=== PATIENT | male | born 1945 | race Caucasian/White ===

== ENCOUNTER 2024-12-30 09:57 | Emergency (ER) | payer OTHER, MEDICARE ==
[~2024-12-30] VITALS: Ht 188 cm; Wt 86.8 kg
[~2024-12-30 09:57] MED LIST: ATOR20TA66 PO; DAPA10TA PO; LISI2.5T14 PO
[2024-12-30 10:00] VITALS: TEMP 98.7
[2024-12-30] MEDS: LidoCAINE 2% Topical Jelly 11mL syringe (UROJET) TOP ONE (10:20)
--- NOTE | 2024-12-30 10:21 | Physician Documentation ---
History of Present Illness ~ Chief Complaint: Urinary Retention Stated Complaint: URINE RETENTION Time Seen by MD: 10:07 HPI 79-year-old male presenting with acute onset urinary retention that started three days ago. He reports that he has been unable to urinate aside from some dribbling and a few drops coming out every time. He has an uncomfortable sensation that has now turned into pain in his suprapubic area. He denies any burning on urination, fever, chills or any other associated symptoms. He does state that it was slightly dizzy today which he describes his lightheadedness as he was unable to urinate. He denies using any opioid pain medications or any other sedatives although he is on medications for depression and mood as well as sleep. Medication Reconciliation Allergies: Coded Allergies: codeine (Verified Allergy, Unknown, 12/30/24) nitroglycerin (Verified Allergy, Unknown, 12/30/24) Scheduled Atorvastatin Calcium (Atorvastatin Calcium), 20 MG PO DAILY Dapagliflozin Propanediol (Farxiga), 1 TAB PO DAILY Lisinopril (Lisinopril), 1 TAB PO DAILY Past Medical History Past Medical History: Vertigo, *CARDIOVASCULAR*, High Cholesterol, Syncope, Diverticulitis, Pancreatitis, *CANCER* Past Surgical History: cancer surgery, cholecystectomy, orthopedic surgeries Alcohol Use: Rarely Drug Use: none Review of Systems All Other Systems at this time: Reviewed and Negative Physical Exam Vital Signs: Temperature: 98.7, Source: Oral, Heart Rate: 84, Respiratory Rate: 18, BP: 144/71, Pulse Oximetry: 99, Weight: 86.800 Oxygen Flow Rate: 0 Physical Exam I have reviewed the triage vitals. CONST: Well developed and well nourished. In no acute distress HENT: Head Atraumatic EYES: Pupils are equal, round and reactive to light. Normal conjunctiva NECK: Normal range of motion. Supple. CARDIO: Normal rate and regular rhythm. No murmurs, rubs, or gallops. S1, S2. PULM/CHEST: No respiratory distress. Lungs clear to auscultation. No wheeze ABD: Soft. Slight tenderness to palpation over the suprapubic area. Nondistended. Bowel sounds normal. No guarding. : Exam deferred MSK: No edema. No deformity. NEURO: Alert and oriented to person, place and time. Moving all extremities SKIN: Warm and dry. PSYCH: Normal mood and affect. Good eye contact. Progress Results/Orders Results/Orders Orders - MEAGAN RAINEY MD Bladder Scan (12/30/24 ) Ct Abdomen Pelvis (12/30/24 10:16) * (A) Mccoy- Protocol * Q12H@07,19 (12/30/24 10:16) Ct Abdomen Pelvis (12/30/24 12:03) Completed Orders - MEAGAN RAINEY MD Cbc/Diff (12/30/24 10:16) Hs Troponin I W Calculations (12/30/24 10:16) BMP (12/30/24 10:16) Electrocardiogram (12/30/24 10:16) Ct Abdomen Pelvis (12/30/24 10:16) Lidocaine 2% Jelly 11ml Syr (Glydo-Lidoc (12/30/24 10:20) Ct Abdomen Pelvis (12/30/24 12:03) Ua With Microscopic (12/30/24 12:38) Vital Signs 12/30/24 12/30/24 12/30/24 12/30/24 10:00 10:40 10:42 12:39 Temp 98.7 Pulse 84 75 61 Resp 18 16 16 16 B/P (MAP) 144/71 122/64 (83) 114/95 (101) Pulse Ox 99 96 95 O2 Flow Rate 0 0 0 Laboratory Tests Test 12/30/24 10:27 12/30/24 12:38 White Blood Count 8.5 Red Blood Count 4.96 Hemoglobin 14.8 Hematocrit 44.3 Mean Corpuscular Volume 89.3 Mean Corpuscular Hemoglobin 29.8 Mean Corpuscular Hemoglobin Concent 33.3 Red Cell Distribution Width 13.0 Platelet Count 270 Mean Platelet Volume 6.7 L Neutrophils (%) (Auto) 79.7 H Lymphocytes (%) (Auto) 12.5 L Monocytes (%) (Auto) 6.5 Eosinophils (%) (Auto) 0.8 Basophils (%) (Auto) 0.5 Neutrophils # (Auto) 6.8 Lymphocytes # (Auto) 1.1 Monocytes # (Auto) 0.6 Eosinophils # (Auto) 0.1 Basophils # (Auto) 0.0 CBC Comment Sodium Level 138 Potassium Level 4.5 Chloride Level 104 Carbon Dioxide Level 31.7 Anion Gap 2 L Blood Urea Nitrogen 22 H Creatinine 1.07 Estimated GFR/1.73 m2 67 BUN/Creatinine Ratio 20.6 H Glucose Level 95 Calcium Level 8.4 L Troponin I High Sensitivity 20 Albumin 3.2 L Chemistry Comments Urine Specimen Description Non-specified Urine Color Yellow Urine Clarity Cloudy Urine pH 6.0 Urine Specific [place] <=1.005 Urine Protein Trace Urine Glucose (UA) Negative Urine Ketones Negative Urine Occult Blood Moderate H Urine Nitrite Negative Urine Bilirubin Negative Urine Urobilinogen 0.2 Urine Leukocyte Esterase Large H Urine RBC 3-10 Urine WBC Tntc H Urine Squamous Epithelial Cells None seen Urine Bacteria 3+ Urine Mucus None seen Volume Urine Centrifuged 10 ml Urine Comment EKG/XRAY/CT/US/VASC/MRI EKG : Additional Comment EKG as interpreted by me showing normal sinus rhythm with a rate of 75 beats per minute, normal axis, no ischemia Medical Decision Making Additional Comment 79-year-old male presenting with acute urinary retention. The patient has urinary retention actually self resolved while in the ED. His urinalysis was positive for moderate blood, leukocyte esterase and WBCs which is suggestive of a urinary tract infection. Given his slight urinary retention and no dysuria I suspect the patient may have prostatitis as well. He declined a rectal exam. I will go ahead and treat him for a UTI with presumed prostatitis given his presenting symptoms, clinical findings and lab findings. He will be prescribed a 14 day course of ciprofloxacin as well as daily Flomax to help with his retention and improve urination. I did advise him however that needs to closely follow up with his PCP as well as with Urology for further evaluation of his potential prostatitis and likely prostatic hyperplasia. He was advised to return immediately to the ED with any acutely worsening symptoms. Departure Disposition: HOME / SELF CARE / HOMELESS Impression: Primary Impression: UTI (urinary tract infection) Additional Impression: Prostatitis Discharge Instructions: Urinary Tract Infection, Adult Additional Instructions: Please take your medications as prescribed. Please ensure drinking plenty of fluids. Follow up closely at the [place] with her primary care physician as well as with Urology. Please return immediately to the emergency department with any acutely worsening symptoms. Referrals: NO PRIMARY CARE PROVIDER (PCP) Prescriptions Tamsulosin Hcl* (Flomax*) 0.4 Mg Cap.sr.24h 1 CAP PO DAILY for 30 Days, #30 CAP Prov: MEAGAN RAINEY MD 12/30/24 Ciprofloxacin Hcl (Ciprofloxacin Hcl) 500 Mg Tablet 500 MG PO BID for 14 Days, #28 TAB Prov: MEAGAN RAINEY MD 12/30/24 MEAGAN RAINEY MD Dec 30, 2024 10:21
--- NOTE | 2024-12-30 10:29 | ELECTROCARDIOGRAPH REPORT ---
[facility] Test Date: 2024-12-30 Test Time: 10:25:48 Pat Name: KORIN BHATT Department: PSYCHIATRIC-ER Room: Gender: M [employer]: : 1945 Requested By: MEAGAN RAINEY Order Number: [id number] Reading MD: Dr. Oskar Deal Measurements Intervals [place] Rate: 75 P: 56 ME: 175 QRS: -8 QRSD: 106 T: 54 QT: 385 QTc: 430 Interpretive Statements Sinus rhythm Probable left atrial enlargement Abnormal R-wave progression, early transition Electronically Signed On 01-02-2025 20:44:[address] Oskar Deal Please click the below link to view image of tracing.
--- NOTE | 2024-12-30 10:46 | RADIOLOGY REPORT ---
Exam: CT CT ABDOMEN PELVIS History: Urinary retension- r/o obstruction. Comparison Study: None Technique: Multidetector spiral CT of the abdomen was performed from lung bases to pubic symphysis. Axial imaging was performed with intravenous contrast following the uneventful administration of 100 ml Omnipaque 300. Coronal and sagittal multiplanar reformats were obtained from the axial data set by the technologist. Radiation Dose : 1. Abdomen/Pelvis: CTDIvol 18.88 mGy, DLP 1140.57 mGy*cm. Findings: Lung Bases: Lung bases are clear. Cardiomegaly. No pericardial effusion. Liver: The liver is normal in size. No focal lesions. Gallbladder and Biliary Tree: The gallbladder is surgically absent. No intrahepatic or extrahepatic biliary ductal dilatation. Spleen: Unremarkable Pancreas: The pancreas enhances normally and there are no focal lesions. The main pancreatic duct is not dilated. Adrenal Glands: Unremarkable Kidneys: There is mild bilateral hydroureteronephrosis. There is no obstructive calculus identified. Left renal atrophy noted. GI tract: The stomach is grossly normal in appearance.. No evidence of small bowel wall thickening or abnormal dilatation to suggest bowel obstruction. There is colonic diverticulosis without acute diverticulitis. No acute appendicitis. Peritoneum/mesentery/retroperitoneum. No evidence of free intraperitoneal air. No ascites. No evidence of suspicious lymphadenopathy. Abdominal Wall: Unremarkable. Vasculature: Abdominal aorta and main branches are unremarkable. Normal vascular enhancement. Urinary Bladder: There is distention of the urinary bladder with fat stranding. Pelvic Organs: The prostate is enlarged measuring 5.3 cm. Musculoskeletal: No aggressive focal bony lesions, acute fractures or dislocation. There is grade 1 anterolisthesis at L4-L5 and L5-S1. Soft tissues: Bilateral fat containing inguinal hernias noted. IMPRESSION: 1. Distended urinary bladder with fat stranding and mild bilateral hydroureteronephrosis. Findings suggestive of urinary tract infection. No obstructive calculus identified. 2. Prostatomegaly. 3. Colonic diverticulosis without acute diverticulitis. 4. Cholecystectomy. 5. Cardiomegaly.
[2024-12-30 10:48] LABS: MEAN PLATELET VOLUME 6.7 FL (7.4-10.4); RED CELL DISTRIBUTION WIDTH 13.0 % (11.5-14.5)
[2024-12-30 10:56] LABS: CREATININE 1.07 MG/DL (0.60-1.10); TOTAL CARBON DIOXIDE 31.7 MMOL/L (24-32); eCRCL 66 ML/MIN; eGFR 67 ML/MIN
--- NOTE | 2024-12-30 12:46 | RADIOLOGY REPORT ---
Exam: CT CT ABDOMEN PELVIS History: urinary retension- r/o obstruction Comparison Study: None TECHNIQUE: Multidetector CT of the abdomen and pelvis was performed from lung bases to ischial tuberosities. Imaging was performed without IV contrast using axial images. Coronal and sagittal reformats were obtained from the axial data set by the technologist. Radiation Dose Information: CT Dose: CTDI volume is 36.9 mGy. Dose-length product is 2036.8 mGy*cm FINDINGS: Evaluation of solid organs is limited due to lack of intravenous contrast use. Findings: Lung Bases: Bilateral lower lobe atelectasis. Cardiomegaly. Pacemaker noted. No pleural or pericardial effusion. Liver: The liver is normal in size. No focal lesions. Diffusely hypoattenuating liver parenchyma consistent with hepatic steatosis. Gallbladder and Biliary Tree: Unremarkable gallbladder. No biliary ductal dilatation. Spleen: Unremarkable Pancreas: The pancreas is grossly normal in appearance. Adrenal Glands: Unremarkable Kidneys: There is mild right hydroureteronephrosis due to 2 mm obstructive distal right ureteral calculus. There is also mild left hydroureteronephrosis due to 4 mm distal left ureteral calculus. Bilateral perinephric fat stranding. GI Tract: The stomach is grossly normal in appearance. Small bowel and colon are normal in caliber and distribution. The appendix is visualized and is normal in caliber. Peritoneal cavity: No pneumoperitoneum. No ascites. Lymphadenopathy: No mesenteric, retroperitoneal or periportal lymphadenopathy. Abdominal Wall and Mesentery: Unremarkable. Vasculature: The visualized abdominal aorta is normal in size and caliber. Evaluation of abdominal and pelvic vessels is limited due to lack of intravenous contrast. Pelvic Organs: Unremarkable Urinary Bladder: There is a Mccoy catheter in the urinary bladder Musculoskeletal: No aggressive focal bony lesions, acute fractures or dislocation. Grade 1 anterolisthesis at L4-L5 facet hypertrophy appears there are Bilateral hip replacements width has streak artifact obscuring a lot of the pelvis. Soft tissues: Unremarkable IMPRESSION: 1. Mild right hydroureteronephrosis due 2 mm distal right ureteral obstructing calculus. 2. Mild left hydroureteronephrosis due to 4 mm distal left ureteral calculus. 3. Hepatic steatosis. Radiation optimization: All CT scans at this facility use at least one of these dose optimization techniques: automated exposure control mA and/or kV adjustment per patient size (includes targeted exams where dose is matched to clinical indication) or iterative reconstruction.
[2024-12-30 12:57] LABS: LEUKOCYTE ESTERASE ,URINE LARGE (Neg); NITRITES, URINE NEGATIVE (Neg); OCCULT BLOOD,URINE MODERATE (Neg)
[2024-12-30 13:01] LABS: UA COLLECTION TYPE NON-SPECIFIED
[2024-12-30 13:11] LABS: MUCUS STRANDS NONE SEEN /LPF (Neg); SQUAMOUS EPITHELIAL CELL,UR NONE SEEN /LPF (FEW)
[2024-12-30] MEDS ORDERED: CIPR-546 PO (14:20)
[2024-12-30] MEDS ORDERED: TAMS-55 PO (14:20)
[2024-12-30 14:30] VITALS: PULSE 66; RESP 16
== END 2024-12-30 14:29 | disposition home or self-care (01) ==
LOC: ER 09:57
DX: N39.0 Urinary tract infection, site not specified (principal); N41.9 Inflammatory disease of prostate, unspecified; F32.A Depression, unspecified; E78.00 Pure hypercholesterolemia, unspecified; Z87.19 Personal history of other diseases of the digestive system; Z88.5 Allergy status to narcotic agent; Z88.8 Allergy status to other drugs, medicaments and biological substances; Z90.49 Acquired absence of other specified parts of digestive tract; Z79.899 Other long term (current) drug therapy
CPT/HCPCS: 36415; 74176; 80048; 81001; 84484; 85025; 93005; 99284; A4314; A4358

== ENCOUNTER 2025-02-24 09:09 | Emergency (ER) | payer OTHER, MEDICARE ==
[~2025-02-24] VITALS: Ht 185.4 cm; Wt 90.8 kg
[2025-02-24] MEDS: proparacaine 0.5% ophthalmic drops 15ml LEFTEYE ONE (09:32)
--- NOTE | 2025-02-24 09:51 | Physician Documentation ---
History of Present Illness ~ Chief Complaint: Blurred Vision Stated Complaint: EYE PAIN Time Seen by MD: 09:39 Source: patient Mode of Arrival: POV Exam Limitations: no limitations HPI 79-year-old male with increased blurred vision to left eye pain and blurry vision after foreign body while working on his car about 10 days ago. Patient has history of glaucoma in the right eye. He has had eye pain discharge and blurry vision. [facility] Medication Reconciliation Allergies: Coded Allergies: codeine (Verified Allergy, Unknown, 02/24/25) nitroglycerin (Verified Allergy, Unknown, 02/24/25) Scheduled Atorvastatin Calcium (Atorvastatin Calcium), 20 MG PO DAILY Dapagliflozin Propanediol (Farxiga), 1 TAB PO DAILY Lisinopril (Lisinopril), 1 TAB PO DAILY Past Medical History Past Medical History: Vertigo, *CARDIOVASCULAR*, High Cholesterol, Syncope, Diverticulitis, Pancreatitis, *CANCER* Past Surgical History: cancer surgery, cholecystectomy, orthopedic surgeries Alcohol Use: Rarely Drug Use: none Review of Systems All Other Systems at this time: Reviewed and Negative Eyes: Reports: see HPI Physical Exam Vital Signs: RN Vital Signs have been reviewed: Yes, Temperature: 97.5, Source: Temporal, Heart Rate: 66, Respiratory Rate: 16, BP: 149/61, Pulse Oximetry: 99, Weight: 90.800 Oxygen Flow Rate: 0 Physical Exam General: Alert, no apparent distress. HEENT: moist mucous membranes. Injected conjunctiva no Tamiko sign smooth EOM and PERRLA fluorescein stain Wood's lamp small corneal abrasion noted intra- ocular pressure 10 Neck: Full range of motion. Respiratory: No respiratory distress speaking in full sentences Chest: No accessory muscle use. Cardiovascular: Appears well perfused Neurologic: Oriented x4. Psychiatric: Normal mood and affect. Skin: Normal color, warm and dry. No edema, no ecchymosis. Visual Acuity : Eye Location: Bilateral Vision Acuity Degree: 20/200 Correction: Corrected Procedures Eye Procedure Alcaine Drops Administered: Yes Reexamination after removal: abrasion Antibiotic Ointment/Drps Admin: left eye Tolerated Procedure Well?: yes, no complications Progress Results/Orders Results/Orders Completed Orders - KAMILA CHILDRESS NP Proparacaine Ophth Solution (Alcaine Oph (02/24/25 09:30) Vital Signs 02/24/25 09:12 Temp 97.5 Pulse 66 Resp 16 B/P (MAP) 149/61 Pulse Ox 99 O2 Flow Rate 0 Medical Decision Making Additional information obtaine: N/A Findings Nursing and Wood's lamp used to evaluate for corneal abrasion due to foreign body working on car Piero-Pen to left eye with right eye glaucoma measurement of 10 Ear Diff. Dx: Considerations: Unlikely: Abrasion, Cerumen impaction, Foreign body, Otitis externa, Barotrauma, Otitis media, Perforation, Referred pain- dental, Referred pain-pharyngitis, Referred pain-sinusitis, Referred pain-TMJ syn., Tympanic Membrane Injury, Other Eye Diff. Dx: Considerations: Include: Conjuctivits-allergic, Conjuctivitis- bacterial, Conjuctivitis-viral, Corneal abrasion, Corneal laceration, Corneal ulceration Nose Diff. Dx: Considerations: Unlikely: Abrasion, Anterior nasal bleed, Avulsion, Contusion, Coagulopathy, Fracture-nasal bone, Fracture-septum, Hypertension, Laceration, Other, Posterior nasal bleed, Retained foreign body, Septal hematoma Tooth Diff. Dx: Considerations: Unlikely: Alveolar fracture, Aveolar osteitis, ANUG, Facial cellulitis, Periapical abscess, Periodontal abscess, Post- extraction bleeding, Pulpitis, Trigeminal neuralgia, Tooth-avulsion, Tooth- eruption, Tooth-fracture, Tooth-subluxation, Other Throat Diff Dx: Considerations: Unlikely: AIDS, Epiglottitis, Esophageal candidiasis, Hand foot mouth disease, Herpangina, Herpetic stomatitis, Herpes simplex, Infection mononucleosis, Immunodeficiency, Linus's angina, Peritonsillar abscess, Peritonsillar cellulitis, Pharyngitis-diphtheria, Pharyn gitis-strepococcal, Pharyngitis-viral, Thrush, URI, Other Departure Time of Disposition: 09:53 Disposition: HOME / SELF CARE / HOMELESS Impression: Primary Impression: Corneal abrasion Condition: Stable Discharge Instructions: Corneal Abrasion, [id number] Additional Instructions: His eyedrops provided a day 1-2 drops every 8 hours. Follow up on Wednesday with oil treater free to return to the ER for any new or worsening symptoms Referrals: NO PRIMARY CARE PROVIDER (PCP) Education Educated: Patient Educated regarding: diagnosis, treatment, need for follow up Signature Scribe Signature: No scribe Attestation: The note accurately reflects work and decisions made by me.Kamila WARD 02/24/25 09:54 KAMILA CHILDRESS NP Feb 24, 2025 09:51
[2025-02-24] MEDS: ciprofloxacin 0.3% 2.5ml ophthalmic solution LEFTEYE ONE (09:58)
[2025-02-24 10:07] VITALS: BP 144/79; PULSE 76; RESP 16; TEMP 97.5; O2SAT 99
== END 2025-02-24 10:09 | disposition home or self-care (01) ==
LOC: ER 09:10
DX: S05.02XA Injury of conjunctiva and corneal abrasion without foreign body, left eye, initial encounter (principal); E78.00 Pure hypercholesterolemia, unspecified; Z88.5 Allergy status to narcotic agent; Z88.8 Allergy status to other drugs, medicaments and biological substances; Z87.19 Personal history of other diseases of the digestive system; Z90.49 Acquired absence of other specified parts of digestive tract; Z79.899 Other long term (current) drug therapy; Z98.890 Other specified postprocedural states; X58.XXXA Exposure to other specified factors, initial encounter; Y93.89 Activity, other specified; Y92.89 Other specified places as the place of occurrence of the external cause; Y99.8 Other external cause status
CPT/HCPCS: 99283